=== PATIENT | female | born 1990 | race Caucasian/White ===

== ENCOUNTER 2017-04-14 05:42 | Day surgery (SDC) | payer OTHER ==
[2017-04-14 06:15] VITALS: BMI 36.5
[2017-04-14 06:16] VITALS: BP 126/82; TEMP 98.3
[2017-04-14] MEDS ORDERED: FLU VACC QS2017-18 36 mo. & older 0.5 ML SYRINGE IM ONE (09:00)
== END 2017-04-14 08:30 | disposition home or self-care (01) ==
LOC: L&D/OP 05:42
PROVIDERS: ATTEND Obstetrics & Gynecology
DX: O47.1 False labor at or after 37 completed weeks of gestation (principal); O98.513 Other viral diseases complicating pregnancy, third trimester; B00.9 Herpesviral infection, unspecified; E28.2 Polycystic ovarian syndrome; Z79.899 Other long term (current) drug therapy; Z3A.39 39 weeks gestation of pregnancy; Z88.1 Allergy status to other antibiotic agents; Z88.2 Allergy status to sulfonamides

== ENCOUNTER 2017-04-14 22:40 | Inpatient (IN) | payer OTHER ==
[2017-04-14 23:02] VITALS: BMI 35.9
[2017-04-14] MEDS ORDERED: Bicitra 30 ML UDCUP ONE (23:39)
[2017-04-14] MEDS ORDERED: CEFAZOLIN/Water 2 GM/20 ML SYRINGE ONE (23:39)
[2017-04-14 23:47] LABS: Hematocrit 37.1 % (36.0-47.0); Mean Platelet Volume 6.8 fL (7.4-10.4); Red Blood Cell (RBC) Count 4.51 mill/uL (4.20-5.40); White Blood Cell (WBC) Count 10.3 thou/uL (4.8-10.8)
[2017-04-14] MEDS ORDERED: Ondansetron HCl/PF 4 MG/2 ML Vial IVP PRN (23:49)
[2017-04-14] MEDS ORDERED: Promethazine HCl 25 MG/ML VIAL IM PRN (23:49)
[2017-04-14] MEDS ORDERED: Morphine PF 1 MG/ML SYR ONE (23:55)
[2017-04-14] MEDS ORDERED: Oxytocin 10 UNITS/ML VIAL ONE (23:56)
[2017-04-14] MEDS ORDERED: Dexamethasone 4 mg/ml Vial ONE (23:56)
[2017-04-14] MEDS ORDERED: PHENYLEPHRINE-NS 100 MCG/ML 10 ML SYRINGE ONE (23:56)
[2017-04-14] MEDS ORDERED: Ketorolac Tromethamine 30 MG/ML VIAL ONE (23:56)
[2017-04-14] MEDS ORDERED: Lactated Ringer's 1,000 ML IV SCH (23:59)
[2017-04-14] MEDS ORDERED: Bicitra 30 ML UDCUP PO SCH (23:59)
[2017-04-14] MEDS ORDERED: CEFAZOLIN/Water 2 GM/20 ML SYRINGE SLOW IVP SCH (23:59)
[2017-04-15] MEDS ORDERED: Bisacodyl 10 MG SUPP PR PRN (01:24)
[2017-04-15] MEDS ORDERED: Adacel (T-DAP) 0.5 ML VIAL IM ONE (01:24)
[2017-04-15] MEDS ORDERED: Lanolin Ointment 7 GM TUBE TOP PRN (01:24)
[2017-04-15] MEDS ORDERED: Promethazine HCl 25 MG/ML VIAL IM PRN ×2 (01:24→01:26)
[2017-04-15] MEDS ORDERED: Ondansetron HCl/PF 4 MG/2 ML Vial IVP PRN ×3 (01:24→01:26)
[2017-04-15] MEDS ORDERED: Promethazine HCl 25 MG SUPP PR PRN (01:26)
[2017-04-15] MEDS ORDERED: Eucerin (Mineral Oil/Petrolatum,White) 30 gm Jar TOP PRN (01:26)
[2017-04-15] MEDS ORDERED: diphenhydrAMINE 50 MG/ML VIAL IVP PRN (01:26)
[2017-04-15] MEDS ORDERED: Naloxone HCl 0.4 mg/ml Vial IVP PRN ×2 (01:26)
[2017-04-15] MEDS ORDERED: Meperidine HCl/PF 25 MG/ML VIAL SLOW IVP PRN (01:26)
[2017-04-15] MEDS ORDERED: HYDROmorphone 2 MG/ML VIAL SLOW IVP PRN (01:26)
[2017-04-15] MEDS ORDERED: Naloxone HCl 0.4 mg/ml Vial IV PRN (01:26)
[2017-04-15] MEDS ORDERED: Communication Order-Pharmacy FS SCH (01:30)
[2017-04-15] MEDS ORDERED: Ketorolac Tromethamine 30 MG/ML VIAL IVP SCH (01:30)
[2017-04-15] MEDS ORDERED: LR w/ Pitocin 40 units/1000 ML BAG IV SCH (01:30)
--- NOTE | 2017-04-15 03:42 | PRG ---
DATE OF SERVICE: 04/14/2017 The patient is a 27-year-old female who presented in active labor and recently was diagnosed with a secondary outbreak genital herpes and is now status post antibiotics for a week. Decision was made to move forward with primary for which I was office assistance. Primary surgeon is Dr. Steffi Norwood. For the complete details, please refer to her dictated note.
--- NOTE | 2017-04-15 04:37 | OP ---
DATE OF SERVICE: 04/14/2017 PREOPERATIVE DIAGNOSES: 1. A 27-year-old female, -0-2-1 at 39 weeks plus with active labor. 2. Herpes simplex virus symptoms despite suppression therapy. 3. Group B Streptococcus negative. POSTOPERATIVE DIAGNOSES: 1. A 27-year-old female, -0-2-1 at 39 weeks plus with active labor. 2. Herpes simplex virus symptoms despite suppression therapy. 3. Group B Streptococcus negative. 4. Liveborn female, weighing 6 pounds 11 ounces with Apgars of 9 and 9 at 1 and 5 minutes respectking vazquez. SURGEON: Inga Norwood MD HOT STRIP FINISHER: Dr. Joel Keita. ANESTHESIA: Spinal. SPECIAL MEDICATIONS: 1. Ancef 2 grams IV admissions officer to the OR. 2. Acyclovir treatment and prophylaxis. CLINICAL HISTORY: This patient is a 27-year-old female who presented less than 24 hours a go for the concern of contractions that were painful. Contractions at that point in time were 10 mi nutes apart. The patient lived in [place]. She called the on-call doctor and was advised to come i n for evaluation. She also noted that she had a history of HSV with a recent outbreak in less than 1 week. She is currently under treatment, however, was still symptomatic despite starting treatment . The patient was evaluated in the tour coordinator and noted to be 3 cm, 70% effaced extremely adjunct history instructor ior and high in the pelvis. She was watched for several hours and given p.o. hydration, had a categ ory 1 tracing with rare contractions. The patient did not make cervical change after several hours and was sent home. The patient presented several hours later with a complaint of regular painful co ntractions that were 2-3 minutes apart that she is breathing through. The patient was checked by [facility] nursing staff and was noted to be 6-7 cm, 80% effaced, and 0 station with bulging membranes. She still had a category 1 tracing with moderate variability and accelerations. Given the patient's his tory of recent outbreak and symptoms despite suppression and treatment therapy, the patient was advi sed for a primary . The risks, benefits, and possible complications as well as alternative s were discussed, the patient was made aware that the risk of vertical transmission was significantl y lowered given that this was not her primary outbreak. The patient wished to proceed. DETAILS OF PROCEDURE: The patient was taken to the operating room where spinal anesthesia was obtmesfin musad. She was placed in the supine position with a leftward tilt. Her Doptones were obtained and we re within the normal range. She was prepped and draped in the usual sterile fashion after a Wang c atheter was placed with sterile technique and drainage of clear urine. The patient was tested for a dequate anesthesia and once noted to be appropriate, an incision was made with the scalpel in the lo wer Pfannenstiel manner and this was carried down to the fascia with Bovie cautery. The fascia was nicked in the midline and extended bilaterally. The Jose Luis clamps were used x2 to elevate the rectu s muscles and sharp dissection. Combinations of blunt and sharp dissection were performed to elevat e the rectus muscles off the fascia. The inferior edge was then grasped in a similar manner and the pyramidalis and rectus muscles were elevated off the lower rectus fascia. The rectus muscles were then in the midline and the peritoneum was breached and extended for exposure of the anter ior uterine surface. The bladder blade was placed and the surgeon's hand was slipped over the uteru s to ensure no adhesive disease. The rectus fascia was elevated and a bladder flap was created, red ucing the bladder further down and away from the lower uterine segment and incision was made with jose mcgrath very carefully with small successive swipes and the amnion was breached with drainage of clear fluid. The incision was then extended and the surgeon's hand was placed in to reach for the vertex. The vertex was deep to the incision and delivered through the anterior shoulder followed by the posterior shoulder followed by the remainder of the 's body was delivered. Delayed cord clamp was observed and the infant was stimulated and noted to cry spontaneously after clamping doubl y and cutting. The was showed to the parents and [facility] in attendance at the delivery. The cord blood was obtained and then the placenta was delivered manually intact with a 3-vessel cord. There were some retained membranes when the uterus was exteriorized and cleansed of the debris that was released with a combination of gentle traction with the ring forceps and using a dry, clean lap. Once all products of conception were removed, th e uterus was sutured in a running locking fashion with a second suture of 1 embricating layer with e xcellent hemostasis. The bladder flap was then reapproximated and the gutters were cleansed of all debris. Seprafilm was placed over the incision and the uterus was then placed back into the abdomen . The peritoneum was closed in a running fashion and the rectus muscles were reapproximated with fi [id number] sutures. The prefascial borders were cleansed of all debris and the fascia was then c losed in a running fashion with excellent hemostasis. The subcutaneous tissue was copiously irrigat ed and bleeding was minimal that was corrected with Bovie cautery. Interrupted sutures with 2-0 jojo in gut were used to reapproximate the space and facilitate closure of the wound. Once the subc utaneous tissue was reapproximated, the skin was closed with 4-0 Monocryl and Dermabond was placed o arsh the incision. The patient tolerated the procedure well and after the Dermabond had dried, a pre ssure dressing was placed over the incision. The uterus was expressed from all debris and clot and the patient was sent to the recovery room in satisfactory condition with her infant. Again, the inf ant was a liveborn female, weighing 6 pounds 11 ounces with Apgars of 9 and 9 at 1 and 5 minutes res pectively. There were no other issues surrounding this surgery.
[2017-04-15] MEDS: Lactated Ringer's 1,000 ML IV SCH ×3 (05:37→11:00)
[2017-04-15] MEDS: Ketorolac Tromethamine 30 MG/ML VIAL IVP PRN ×2 (05:39→13:11)
[2017-04-15 05:44] LABS: Hematocrit 36.5 % (36.0-47.0); Mean Platelet Volume 6.8 fL (7.4-10.4); Red Blood Cell (RBC) Count 4.43 mill/uL (4.20-5.40); White Blood Cell (WBC) Count 15.4 thou/uL (4.8-10.8)
[2017-04-15] MEDS ORDERED: FLU VACC QS2017-18 36 mo. & older 0.5 ML SYRINGE IM ONE (09:00)
[2017-04-15] MEDS: Ferrous Sulfate 325 MG TAB PO SCH (09:08)
[2017-04-15] MEDS: Prenatal Vitamin 1 TAB PO SCH (09:51)
[2017-04-15] MEDS: Acyclovir 400 mg Tablet PO SCH ×3 (09:51→21:49)
[2017-04-15] MEDS: Docusate Calcium (SURFAK) 240 MG CAP PO SCH ×2 (09:51→21:49)
[2017-04-15] MEDS ORDERED: HYDROcodone/Acetaminophen 5/325 mg Tablet PO PRN (13:30)
[2017-04-15] MEDS ORDERED: Zolpidem Tartrate 5 MG TAB PO PRN (13:30)
[2017-04-15] MEDS: HYDROcodone/Acetaminophen 5/325 mg Tablet PO PRN ×2 (17:23→21:50)
[2017-04-15] MEDS: Ibuprofen 800 MG TAB PO SCH (21:50)
[2017-04-16] MEDS: HYDROcodone/Acetaminophen 5/325 mg Tablet PO PRN ×5 (05:04→22:26)
[2017-04-16] MEDS: Ibuprofen 800 MG TAB PO SCH ×3 (05:04→20:33)
[2017-04-16] MEDS: Ferrous Sulfate 325 MG TAB PO SCH ×3 (05:05→20:34)
[2017-04-16] MEDS: Lactated Ringer's 1,000 ML IV SCH ×3 (05:06→17:41)
[2017-04-16] MEDS ORDERED: Ibuprofen 800 MG TAB PO SCH (06:00)
[2017-04-16] MEDS: Acyclovir 400 mg Tablet PO SCH ×3 (08:35→20:34)
[2017-04-16] MEDS: Prenatal Vitamin 1 TAB PO SCH (08:35)
[2017-04-16] MEDS: Docusate Calcium (SURFAK) 240 MG CAP PO SCH ×2 (08:35→20:33)
[2017-04-17] MEDS: Lactated Ringer's 1,000 ML IV SCH (02:21)
[2017-04-17] MEDS: Ibuprofen 800 MG TAB PO SCH (05:34)
[2017-04-17] MEDS: HYDROcodone/Acetaminophen 5/325 mg Tablet PO PRN (05:34)
[2017-04-17 07:25] VITALS: BP 108/60; TEMP 98
[2017-04-17] MEDS: Prenatal Vitamin 1 TAB PO SCH (08:29)
[2017-04-17] MEDS: Docusate Calcium (SURFAK) 240 MG CAP PO SCH (08:30)
[2017-04-17] MEDS: Acyclovir 400 mg Tablet PO SCH (08:33)
== END 2017-04-17 14:05 | disposition home or self-care (01) | DRG 766 ==
LOC: L&D/OP 22:40 → L&D 23:18 → 3SW 04-15 03:22
PROVIDERS: ADMIT Obstetrics & Gynecology; ATTEND Obstetrics & Gynecology
PROC: 10D00Z1 Extraction of Products of Conception, Low, Open Approach (ICD-10-PCS; principal; 2017-04-14)
DX: O98.32 Other infections with a predominantly sexual mode of transmission complicating childbirth (principal); A60.00 Herpesviral infection of urogenital system, unspecified; Z3A.39 39 weeks gestation of pregnancy; Z37.0 Single live birth
CPT/HCPCS: 36415; 85027; 86762; 86780; 86850; 86900; 86901; 87340; J1100; J1200; J1885; J2274; J2405; J2590